=== PATIENT | male | born 1980 | race Caucasian/White ===

== ENCOUNTER 2017-10-03 17:56 | Emergency (ER) | payer SELFPAY ==
[2017-10-03] MEDS ORDERED: OXYCODONE/APAP 5/325 TAB PO ONE (18:38)
[2017-10-03] MEDS ORDERED: KETOROLAC 30 MG/1 ML SDV IVP ONE (18:38)
[2017-10-03] MEDS ORDERED: ONDANSETRON 4 MG/2 ML VIAL IVP ONE (18:38)
[2017-10-03] MEDS ORDERED: NS 1,000 ML IV ONE (18:38)
[2017-10-03] MEDS ORDERED: ONDANSETRON 4 MG/2 ML VIAL ONE (18:38)
--- NOTE | 2017-10-03 18:38 | EDPHY ---
H & P Stated Complaint: l sided abd pain since 3pm/ n/v Time Seen by Provider: 10/03/17 18:38 HPI/ROS: HPI: This is a 37-year-old male who presents with Chief Complaint: l sided abd pain since 3pm/ n/v Location: Left lower quadrant Quality: Sharp, nonradiating pain Duration: 3 hr Signs and Symptoms: no fever, + nausea, + vomiting x1 no hematemesis, no blood in stool, no abdominal bloating, no diarrhea, no back pain, no dysuria, no hematuria, + urinary frequency this morning, no testicular/groin pain, no indigestion, no chest pain, no shortness of breath Timing: Acute Severity: 03/16 Context: Patient is generally healthy and does not take any regular medications presents with sudden onset of sharp, constant, nonradiating pain that started approximately 3 hr prior to arrival while he was sitting in a meeting. He reports that he felt nauseous and vomited x1. After further questioning patient admits that he had urinary frequency this morning but denies any hematuria or dysuria. No prior history of kidney stones. Denies fever/diarrhea/constipation. Eating and drinking normally prior to the onset of pain. No history of abdominal surgeries. Complains of chills. Modifying Factors: None Comment: ROS: see HPI Constitutional: No fever, + chills, no weight loss Eyes: No blurred vision Respiratory: No shortness of breath, no cough Cardiovascular: No chest pain, no palpitations Gastrointestinal: + nausea, + vomiting, no diarrhea, no hematemesis, no blood in stool Genitourinary: No dysuria, no blood in urine Extremities: No myalgias, no edema Neurologic: No weakness, no numbness Skin: No rashes, no petechiae Hematologic: No bruising, no bleeding MEDICAL/SURGICAL/SOCIAL HISTORY: Medical history: Generally healthy. Does not take any regular medications. Surgical history: Denies Social history: Employed. CONSTITUTIONAL: Shaking adult white male, awake and alert, no obvious distress HEENT: Atraumatic and normocephalic, PERRL, EOMI. Tympanic membranes clear. Oropharynx clear, no exudate and moist pink mucosa. Airway patent. No lymphadenopathy. No meningismus. Cardiovascular: Normal S1/S2, bradycardia rate 48-58 bpm, regular rhythm, without murmur rub or gallop. PULMONARY/CHEST: Symmetrical and nontender. Clear to auscultation bilaterally. Good air movement. No accessory muscle usage. ABDOMEN: Soft, nondistended, left flank and left lower quadrant moderate tenderness, no rebound, no guarding, no peritoneal signs, no masses or organomegaly. No CVAT. Normoactive bowel sounds heard x4. EXTREMITIES: 2/2 pulses, strength 5/5, no deformities, no clubbing, no cyanosis or edema. NEUROLOGICAL: no focal neuro deficits. GCS 15. SKIN: Warm and dry, no erythema. no rash. Good capillary refill. Source: Patient Exam Limitations: No limitations - Personal History Current Tetanus/Diphtheria Vaccine: Yes - Medical/Surgical History Hx Asthma: No Hx Chronic Respiratory Disease: No Hx Diabetes: No Hx Cardiac Disease: No Hx Renal Disease: No Hx Cirrhosis: No Hx Alcoholism: No Hx HIV/AIDS: No Hx Splenectomy or Spleen Trauma: No Other PMH: denies - Social History Smoking Status: Never smoked Constitutional: Initial Vital Signs Temperature (C) 36.4 C 10/03/17 18:03 Heart Rate 54 L 10/03/17 18:03 Respiratory Rate 18 10/03/17 18:03 Blood Pressure 156/89 H 10/03/17 18:03 O2 Sat (%) 99 10/03/17 18:03 O2 Delivery Mode Room Air Allergies/Adverse Reactions: No Known Allergies Allergy (Unverified 10/03/17 18:03) Home Medications: Medication Instructions Recorded Ondansetron Odt [Zofran Odt 4 mg 4 mg PO Q4 PRN #12 tab 10/03/17 (*)] Tamsulosin HCl [Flomax 0.4 MG (*)] 0.4 mg PO DAILY #10 cap 10/03/17 oxyCODONE/APAP 5/325 [Percocet 1 - 2 tab PO Q4H PRN #20 tab 10/03/17 5/325 (*)] Medical Decision Making - Diagnostics Imaging Results: Imaging Impressions Abdomen CT 10/03/17 18:41 Impression: A 4-mm calculus in the mid to distal left ureter resulting in moderate left hydronephrosis and hydroureter. Findings discussed with Emergency Department physician, Olga Garcia PA-C, on October 03, 2017 at 1955. ED Course/Re-evaluation: Urinalysis, labs, IV fluids, IV medications, CT abdomen and pelvis without and with contrast ordered 1844: Given 1 L normal saline, IV Toradol, IV morphine, IV Zofran upon arrival EKG reviewed with attending and shows no signs of arrhythmia or acute ischemic changes 1919: Labs reviewed and WBC 16 K with lactic acid 2.7; normal saline 2.6 L total ordered per 30 ml/kg criteria. Creatinine 1.1 Suspect reactive. Called by radiologist who advised that there is a 4 x 2.5 mm stone at near the sacral prominence in the mid to distal ureter; moderate hydronephrosis 1958: Reassessed patient reports moderate pain relief. Passed p.o. Trial. Vitals improved with pain control and heart rate remains in 70 to 80s. patietn requesting to be discharged home versus repeat lactic acid level to show improvement. doubt sepsis and suspect inflammatory. Vital signs at discharge greatly improved. Pain controlled. Follow-up with Urology This patient was seen under the supervision of my primary supervising physician. I evaluated care for this patient independently. Discussed this patient with Dr. Nieto who did not see the patient. Differential Diagnosis: Abdominal pain including but not limited to appendicitis, cholecystitis, gastritis and urinary tract infection. - Data Points Laboratory Results: Laboratory Results 10/03/17 18:45 10/03/17 18:45 10/03/17 10/03/17 10/03/17 20:48 18:45 18:45 WBC RBC Hgb Hct MCV MCH MCHC RDW Plt Count MPV Neut % (Auto) Lymph % (Auto) [place] % (Auto) Eos % (Auto) Baso % (Auto) Nucleat RBC Rel Count Absolute Neuts (auto) Absolute Lymphs (auto) Absolute Monos (auto) Absolute Eos (auto) Absolute Basos (auto) Absolute Nucleated RBC Immature Gran % Immature Gran # PT 13.2 SEC SEC (12.0-15.0) INR 0.98 (0.83-1.16) APTT 27.0 SEC SEC (23.0-38.0) VBG Lactic Acid Sodium Potassium Chloride Carbon Dioxide Anion Gap BUN Creatinine Estimated GFR Glucose Calcium Total Bilirubin Cancelled Conjugated Bilirubin Unconjugated Bilirubin AST ALT Alkaline Phosphatase Total Protein Albumin Lipase Specimen Hemolysis Cancelled Urine Color YELLOW Urine Appearance CLEAR Urine pH 6.0 (5.0-7.5) Ur Specific [place] 1.032 H (1.002-1.030) Urine Protein NEGATIVE (NEGATIVE) Urine Ketones NEGATIVE (NEGATIVE) Urine Blood 3+ H (NEGATIVE) Urine Nitrate NEGATIVE (NEGATIVE) Urine Bilirubin NEGATIVE (NEGATIVE) Urine Urobilinogen NEGATIVE EU EU (0.2-1.0) Ur Leukocyte Esterase NEGATIVE (NEGATIVE) Urine RBC 50-182 /hpf H /hpf (0-3) Urine WBC 3-5 /hpf H /hpf (0-3) Ur Epithelial Cells TRACE /lpf /lpf (NONE-1+) Urine Mucus TRACE /lpf /lpf (NONE-1+) Urine Glucose NEGATIVE (NEGATIVE) 10/03/17 10/03/17 10/03/17 18:45 18:45 18:45 WBC 16.02 10^3/uL H 10^3/uL (3.80-9.50) RBC 4.72 10^6/uL 10^6/uL (4.40-6.38) Hgb 14.8 g/dL g/dL (13.7-17.5) Hct 43.0 % % (40.0-51.0) MCV 91.1 fL fL (81.5-99.8) MCH 31.4 pg pg (27.9-34.1) MCHC 34.4 g/dL g/dL (32.4-36.7) RDW 13.0 % % (11.5-15.2) Plt Count 205 10^3/uL 10^3/uL (150-400) MPV 10.3 fL fL (8.7-11.7) Neut % (Auto) 86.4 % H % (39.3-74.2) Lymph % (Auto) 8.4 % L % (15.0-45.0) [place] % (Auto) 3.9 % L % (4.5-13.0) Eos % (Auto) 0.3 % L % (0.6-7.6) Baso % (Auto) 0.4 % % (0.3-1.7) Nucleat RBC Rel Count 0.0 % % (0.0-0.2) Absolute Neuts (auto) 13.85 10^3/uL H 10^3/uL (1.70-6.50) Absolute Lymphs (auto) 1.34 10^3/uL 10^3/uL (1.00-3.00) Absolute Monos (auto) 0.63 10^3/uL 10^3/uL (0.30-0.80) Absolute Eos (auto) 0.05 10^3/uL 10^3/uL (0.03-0.40) Absolute Basos (auto) 0.06 10^3/uL 10^3/uL (0.02-0.10) Absolute Nucleated RBC 0.00 10^3/uL 10^3/uL (0-0.01) Immature Gran % 0.6 % % (0.0-1.1) Immature Gran # 0.09 10^3/uL 10^3/uL (0.00-0.10) PT INR APTT VBG Lactic Acid 2.7 mmol/L H mmol/L (0.7-2.1) Sodium 142 mEq/L mEq/L (135-145) Potassium 4.2 mEq/L mEq/L (3.5-5.2) Chloride 106 mEq/L mEq/L (97-110) Carbon Dioxide 23 mEq/l mEq/l (22-31) Anion Gap 13 mEq/L mEq/L (8-16) BUN 17 mg/dL mg/dL (7-23) Creatinine 1.1 mg/dL mg/dL (0.7-1.3) Estimated GFR > 60 Glucose 138 mg/dL H mg/dL (70-100) Calcium 9.5 mg/dL mg/dL (8.5-10.4) Total Bilirubin 0.3 mg/dL mg/dL (0.1-1.4) Conjugated Bilirubin 0.2 mg/dL mg/dL (0.0-0.5) Unconjugated Bilirubin 0.1 mg/dL mg/dL (0.0-1.1) AST 22 IU/L IU/L (17-59) ALT 37 IU/L IU/L (21-72) Alkaline Phosphatase 107 IU/L IU/L (38-126) Total Protein 6.7 g/dL g/dL (6.3-8.2) Albumin 4.3 g/dL g/dL (3.5-5.0) Lipase 43 IU/L IU/L (23-300) Specimen Hemolysis Urine Color Urine Appearance Urine pH Ur Specific [place] Urine Protein Urine Ketones Urine Blood Urine Nitrate Urine Bilirubin Urine Urobilinogen Ur Leukocyte Esterase Urine RBC Urine WBC Ur Epithelial Cells Urine Mucus Urine Glucose Medications Given: Discontinued Medications Sodium Chloride (Ns) 1,000 mls @ 0 mls/hr IV ONCE ONE; Wide Open PRN Reason: Protocol Stop: 10/03/17 18:39 Last Admin: 10/03/17 18:51 Dose: 1,000 mls Sodium Chloride (Ns) 2,600 mls @ 5,200 mls/hr 30 ml/kg infuse over 30 min ( 2600 ml) IV EDNOW ONE PRN Reason: Protocol Stop: 10/03/17 19:52 Last Admin: 10/03/17 19:57 Dose: 2,600 mls Ketorolac Tromethamine (Toradol) 30 mg IVP EDNOW ONE Stop: 10/03/17 18:39 Last Admin: 10/03/17 18:53 Dose: 30 mg Morphine Sulfate (Morphine) 4 mg IVP EDNOW ONE Stop: 10/03/17 18:42 Last Admin: 10/03/17 18:50 Dose: 4 mg Ondansetron HCl (Zofran) 4 mg IVP EDNOW ONE Stop: 10/03/17 18:39 Last Admin: 10/03/17 18:49 Dose: 4 mg Oxycodone/Acetaminophen (Percocet 5/325mg Prepack#4) 1 btl TAKEHOME EDNOW ONE Stop: 10/03/17 20:34 Last Admin: 10/03/17 21:12 Dose: 1 btl Tamsulosin HCl (Flomax) 0.4 mg PO EDNOW ONE Stop: 10/03/17 19:59 Last Admin: 10/03/17 20:10 Dose: 0.4 mg Departure - Departure Disposition: Home, Routine, Self-Care Clinical Impression: Ureterolithiasis, Renal colic on left side Condition: Good Instructions: Renal Colic (ED), Ureteral Stones (ED) Additional Instructions: Consume a minimum of 8-10 glasses of water or electrolyte fluid replacement drinks that include Gatorade, Powerade, Pedialyte. Eat a bland diet for the next 48 hours and then slowly advance as tolerated. Take Zofran 1 tab every 4 hours as needed for nausea, vomiting. Take ibuprofen 600-800 mg every 6-8 hours with food as needed for pain. Use Percocet every 6 hours as needed for severe/break through pain. Strain all urine and keep stone to give to urologist. Follow-up with Urology in 7-10 days. Return to the Emergency Room if symptoms do not resolve in the next 48-72 hours , you spike a fever > 102 F, or experience intractable abdominal pain/nausea/ vomiting. Referrals: LOUIE GUDINO [Other] - As per Instructions Prescriptions: Ondansetron Odt [Zofran Odt 4 mg (*)] 4 mg PO Q4 PRN #12 tab PRN Reason: Nausea/Vomiting, Use 1st oxyCODONE/APAP 5/325 [Percocet 5/325 (*)] 1 - 2 tab PO Q4H PRN #20 tab PRN Reason: Pain, Severe Tamsulosin HCl [Flomax 0.4 MG (*)] 0.4 mg PO DAILY #10 cap
[2017-10-03 19:01] LABS: PLATELET COUNT 205 10^3/uL (150-400)
--- NOTE | 2017-10-03 19:06 | CPEKG ---
Heart Rate: 51 RR Interval: 1176 P-R Interval: 152 QRSD Interval: 88 QT Interval: 436 QTC Interval: 402 P [place]: 53 QRS [place]: 53 T Wave [place]: 49 EKG Severity - ABNORMAL ECG - EKG Impression: SINUS RHYTHM EKG Impression: LEFT VENTRICULAR HYPERTROPHY Electronically Signed By: Jennifer Nieto 03-Oct-2017 23:02:38
[2017-10-03] MEDS ORDERED: IOPAMIDOL (ISOVUE-300) 100 ML BTL ONE (19:22)
[2017-10-03] MEDS ORDERED: NS 2,600 ML IV ONE (19:23)
[2017-10-03 19:44] LABS: INR 0.98 (0.83-1.16); PROTIME(PATIENT) 13.2 SEC (12.0-15.0)
[2017-10-03] MEDS ORDERED: TAMSULOSIN HCL 0.4 MG CAP PO ONE (19:58)
[2017-10-03] MEDS ORDERED: OXYCODONE/APAP 5/325MG PREPACK#4 BTL TAKEHOME ONE (20:33)
[2017-10-03 21:06] VITALS: BP 120/79; PULSE 66; RESP 16; O2SAT 97
[2017-10-03 21:21] VITALS: TEMP 98.8
== END 2017-10-03 21:21 | disposition home or self-care (01) ==
DX: N20.1 Calculus of ureter (principal); E86.9 Volume depletion, unspecified
CPT/HCPCS: 96374; J1885; J2270; J2405; Q9967